=== PATIENT | female | born 1985 | race American Indian/Alaskan Native ===

== ENCOUNTER 2021-12-12 23:39 | Outpatient (CLI) | payer OTHER ==
[2021-12-12] MEDS ORDERED: LACTATED RINGERS 500 ML IV ONE (23:55)
[2021-12-13 00:13] VITALS: BP 109/66
--- NOTE | 2021-12-13 02:18 | Ultrasound Report ---
US OB BPP wo non-stress, US OB limited INDICATION / CLINICAL INFORMATION: dopplers COMPARISON: None available. TECHNIQUE: Using a transcutaneous probe, multiple grayscale, color Doppler, and spectral Doppler imag es of the uterus and fetus were captured and stored. Additional biophysical profile was performed with scoring of respiratory motion, motion, posture and tone, and qualitative amniotic fluid volume. FINDINGS: BREATHING MOVEMENT = 2 GROSS BODY MOVEMENT = 2 TONE = 2 QUALITATIVE AMNIOTIC FLUID VOLUME = 2 TOTAL BIOPHYSICAL SCORE = 8/8 Clinical estimated gestational age is 26 weeks 4 days. Single breech fetus with heart rate of 149 bpm is demonstrated. Amniotic fluid index is within normal limits measuring 13.5 cm. A measurement of the cervix is documented at 3.2 cm, no images of the cervix are present on the provi ded images. Biparietal Diameter = 6.79 cm = 27, 2 weeks, days Head Circumference = 25.45 cm = 27, 2 weeks, days Abdominal Circumference = 23.93 cm = 28, 2 weeks, days Femur Length = 4.91 cm = 26, 0 weeks, days Average Ultrasound Age (AUA) = 27, 3 weeks, days Estimated weight = 1089 g. IMPRESSION: 1. Single fetus with heart rate 149 bpm. Estimated weight is 1089 g. 2. biophysical profile score equals 8/8. Signer Name: Robert Villasenor II, MD Signed: 12/13/2021 2:13 AM Workstation Name: [id number]
== END 2021-12-13 01:40 | disposition short-term general hospital (02) ==
LOC: TRG 23:39 → APU 23:41 → TRG 12-13 01:40
PROVIDERS: ATTEND Obstetrics & Gynecology Gynecology
DX: O09.893 Supervision of other high risk pregnancies, third trimester (principal); O46.92 Antepartum hemorrhage, unspecified, second trimester; Z3A.26 26 weeks gestation of pregnancy
CPT/HCPCS: 59025; 76815; 76816; 76817; 76819